=== PATIENT | male | born 1965 | race Caucasian/White ===

== ENCOUNTER 2018-03-21 11:57 | Emergency (ER) | payer OTHER ==
[~2018-03-21] VITALS: Ht 170.2 cm; Wt 86.2 kg
--- NOTE | 2018-03-21 12:17 | NUR ---
DR OVIEDO AT BEDSIDE FOR EVAL.
--- NOTE | 2018-03-21 12:25 | NUR ---
IV LINE STARTED BLOOD DRAWN AND SENT TO LAB.
--- NOTE | 2018-03-21 12:28 | NUR ---
PT STARTED C/O CHEST PAIN. ERMD AWARE.
[2018-03-21 12:29] LABS: BASOPHILS % (AUTO) 0.3 % (0.0-2.0); EOSINOPHILS % (AUTO) 1.5 % (0.0-6.0); HEMATOCRIT 46 % (39-51); HEMOGLOBIN 14.3 g/dL (13.5-17.5); LYMPHOCYTES # (AUTO) 1.9 /CMM (0.8-4.8); LYMPHOCYTES % (AUTO) 38.8 % (20.0-44.0); MEAN CORPUSCULAR HGB CONC 31 g/dl (31.0-36.0); MEAN CORPUSCULAR VOLUME 66 fL (80-96); MONOCYTES # (AUTO) 0.4 /CMM (0.1-1.30); MONOCYTES % (AUTO) 7.8 % (2.0-12.0); NEUTROPHILS # (AUTO) 2.5 /CMM (1.8-8.9); NEUTROPHILS % (AUTO) 51.6 % (43.0-81.0); PLATELET COUNT (AUTO) 200 /CMM (150-450); RDW COEFFICIENT OF VARIATION 13.5 (11.5-15.0); WHITE BLOOD COUNT (AUTO) 4.9 K/uL (4.3-11.0)
[2018-03-21] MEDS ORDERED: ONDANSETRON HCL/PF 4 MG/2 ML VIAL ONE (12:29)
[2018-03-21] MEDS ORDERED: FAMOTIDINE/PF INJ 20 MG/2 ML VIAL IV ONE ×2 (12:29→12:30)
[2018-03-21] MEDS ORDERED: ONDANSETRON HCL/PF 4 MG/2 ML VIAL IVP ONE (12:30)
[2018-03-21] MEDS ORDERED: IV NS 0.9% 1,000 ML BAG IV ONE (12:30)
[2018-03-21 12:38] LABS: CALCIUM, SERUM 8.8 mg/dL (8.5-10.1); CREATININE 1.2 mg/dL (0.6-1.3); POTASSIUM 3.5 mmol/L (3.5-5.1)
[2018-03-21 12:44] LABS: ALBUMIN 3.8 g/dL (3.4-5.0); BILIRUBIN,DIRECT 0.1 mg/dL (0.0-0.2); BILIRUBIN,TOTAL 0.4 mg/dL (0.2-1.0); TOTAL PROTEIN, SERUM 7.2 g/dL (6.4-8.2)
[2018-03-21 13:35] VITALS: BP 132/88
--- NOTE | 2018-03-21 13:35 | NUR ---
Patient discharged to home in stable condition. Written and verbal after care instructions given. Patient verbalizes understanding of instruction.IV removed. Catheter intact and site benign. Pressure and 4x4 applied to site. No bleeding noted.
== END 2018-03-21 13:36 | disposition home or self-care (01) ==
LOC: ER 11:59
DX: A08.4 Viral intestinal infection, unspecified (principal); R11.2 Nausea with vomiting, unspecified; R19.7 Diarrhea, unspecified; I49.8 Other specified cardiac arrhythmias
CPT/HCPCS: 36415; 80048; 80076; 83690; 84484; 85025; 93005; 96361; 96374; 96375; 99285; A4606; J2405; J3490; J7030; Z7610